=== PATIENT | male | born 1940 | race Caucasian/White ===

== ENCOUNTER 2021-04-11 18:48 | Emergency (ER) | payer MEDICARE, OTHER ==
[~2021-04-11] VITALS: Ht 170.2 cm; Wt 73.9 kg
--- NOTE | 2021-04-11 18:48 | NUR ---
PT BIB SELF C/O LOWER ABDOMINAL PAIN STARTED THIS MORNING. PT IS AAOX4, NOT IN RESPIRATORY DISTRESS, V/S STABLE, KEPT RESTED AND COMFORTABLE. WILL CONTINUE TO MONITOR.
--- NOTE | 2021-04-11 19:11 | NUR ---
REPORT GIVEN TO JESSICA CUELLAR FOR [facility].
[2021-04-11] MEDS ORDERED: ONDANSETRON HCL/PF 4 MG/2 ML VIAL ONE (19:12)
[2021-04-11 19:23] LABS: HEMATOCRIT 45 % (39-51); HEMOGLOBIN 15.5 g/dL (13.5-17.5); MEAN CORPUSCULAR HGB CONC 35 g/dl (31.0-36.0)
--- NOTE | 2021-04-11 19:25 | NUR ---
URINE COLLECTED, SENT TO LAB.
--- NOTE | 2021-04-11 19:25 | NUR ---
TOOK OVER PT CARE. PT ON MONITOR AND PULSE OX.
[2021-04-11 19:30] LABS: BASOPHILS % (AUTO) 0.1 % (0.0-2.0); EOSINOPHILS % (AUTO) 0.1 % (0.0-6.0); LYMPHOCYTES # (AUTO) 0.9 /CMM (0.8-4.8); MEAN CORPUSCULAR VOLUME 87 fL (80-96); MONOCYTES % (AUTO) 9.9 % (2.0-12.0); NEUTROPHILS # (AUTO) 8.4 /CMM (1.8-8.9); NEUTROPHILS % (AUTO) 80.9 % (43.0-81.0); PLATELET COUNT (AUTO) 178 /CMM (150-450); RED BLOOD CELL COUNT(AUTO) 5.16 MIL/uL (4.5-6.0); WHITE BLOOD COUNT (AUTO) 10.3 K/uL (4.3-11.0)
[2021-04-11 19:30] LABS: BILIRUBIN,URINE NEGATIVE (NEGATIVE); COLOR,URINE YELLOW (YELLOW); LEUKOCYTE ESTERASE ,URINE NEGATIVE (NEGATIVE); NITRITE, URINE NEGATIVE (NEGATIVE); PH,URINE 5.5 (5.0-8.0); PROTEIN,URINE NEGATIVE (NEGATIVE); UGLUCOSE NEGATIVE (NEGATIVE); UROBILINOGEN,URINE 0.2 EU/dL (0.2)
[2021-04-11] MEDS ORDERED: IV NS 0.9% 1,000 ML BAG IV ONE (19:30)
[2021-04-11] MEDS ORDERED: ONDANSETRON HCL/PF 4 MG/2 ML VIAL IVP ONE (19:30)
--- NOTE | 2021-04-11 19:40 | NUR ---
BTOUGHT TO CT
[2021-04-11 19:46] LABS: RBC,URINE 21-50 /HPF (0-2); WBC,URINE 0-2 /HPF (0-3)
[2021-04-11 19:47] LABS: BACTERIA,URINE RARE /HPF (None Seen); URINE AMORPHOUS URATE Few /HPF (None Seen)
[2021-04-11 19:50] LABS: ALBUMIN 3.8 g/dL (3.4-5.0); BILIRUBIN,DIRECT 0.2 mg/dL (0.0-0.2); BILIRUBIN,TOTAL 0.8 mg/dL (0.2-1.0); CALCIUM, SERUM 9.3 mg/dL (8.5-10.1); CREATININE 1.2 mg/dL (0.6-1.3); TOTAL PROTEIN, SERUM 7.5 g/dL (6.4-8.2)
[2021-04-11 20:02] LABS: SQUAMOUS EPITHELIAL CELL,UR 0-2 /HPF (None Seen)
--- NOTE | 2021-04-11 20:27 | NUR ---
AWAITING CT RESULTS
[2021-04-11] MEDS ORDERED: HYDR-3972 PO (21:05)
[2021-04-11] MEDS ORDERED: ONDA4TAB5 PO (21:05)
--- NOTE | 2021-04-11 21:19 | NUR ---
IV removed. Catheter intact and site benign. Pressure and 4x4 applied to site. No bleeding noted.
--- NOTE | 2021-04-11 21:19 | NUR ---
Patient discharged to home in stable condition. Written and verbal after care instructions given. Patient verbalizes understanding of instruction and RX. Pt ambulated out of ED. VSS.
[2021-04-11 21:20] VITALS: BP 141/71
== END 2021-04-11 21:21 | disposition home or self-care (01) ==
LOC: ER 18:56
DX: N20.0 Calculus of kidney (principal); E86.0 Dehydration; I10 Essential (primary) hypertension; Z98.890 Other specified postprocedural states
CPT/HCPCS: 36415; 74176; 80048; 80076; 81001; 83690; 85025; 96361; 96374; 99284; J2405; J7030

== ENCOUNTER 2021-04-22 18:42 | Emergency (ER) | payer MEDICARE, OTHER ==
[~2021-04-22] VITALS: Ht 172.7 cm; Wt 72.6 kg
[~2021-04-22 18:42] MED LIST: HYDR-3972 PO; ONDA4TAB5 PO
[2021-04-22 19:03] VITALS: BP 134/78
[2021-04-22] MEDS ORDERED: LIDOCAINE 2% JEL UROJET 10 ML MM ONE (19:15)
[2021-04-22 19:33] LABS: BASOPHILS % (AUTO) 0.3 % (0.0-2.0); EOSINOPHILS % (AUTO) 0.9 % (0.0-6.0); HEMATOCRIT 43 % (39-51); HEMOGLOBIN 14.4 g/dL (13.5-17.5); LYMPHOCYTES # (AUTO) 1.6 /CMM (0.8-4.8); LYMPHOCYTES % (AUTO) 21.5 % (20.0-44.0); MEAN CORPUSCULAR HGB CONC 34 g/dl (31.0-36.0); MEAN CORPUSCULAR VOLUME 87 fL (80-96); MONOCYTES % (AUTO) 14.1 % (2.0-12.0); NEUTROPHILS # (AUTO) 4.6 /CMM (1.8-8.9); NEUTROPHILS % (AUTO) 63.2 % (43.0-81.0); PLATELET COUNT (AUTO) 183 /CMM (150-450); RED BLOOD CELL COUNT(AUTO) 4.89 MIL/uL (4.5-6.0); WHITE BLOOD COUNT (AUTO) 7.3 K/uL (4.3-11.0)
[2021-04-22 19:43] LABS: BILIRUBIN,URINE Negative (NEGATIVE); COLOR,URINE YELLOW (YELLOW); LEUKOCYTE ESTERASE ,URINE Negative (NEGATIVE); NITRITE, URINE Negative (NEGATIVE); PH,URINE 5.5 (5.0-8.0); PROTEIN,URINE 30 mg/dl (NEGATIVE); UGLUCOSE Negative (NEGATIVE); UROBILINOGEN,URINE 0.2 EU/dL (0.2)
[2021-04-22 19:44] LABS: CALCIUM, SERUM 9.2 mg/dL (8.5-10.1); CREATININE 1.2 mg/dL (0.6-1.3); POTASSIUM 3.9 mmol/L (3.5-5.1)
[2021-04-22 20:02] LABS: BACTERIA,URINE Rare /HPF (None Seen); SQUAMOUS EPITHELIAL CELL,UR Few /HPF (None Seen); WBC,URINE NONE SEEN /HPF (0-3)
--- NOTE | 2021-04-22 21:48 | NUR ---
PATIENT CAME TO ER BED 4 C/O DRIBBLES FROM URINATION S/P PREVIOUS 6 MM STONE SINCE 04/11. PATIENT STATES THAT HE IS UNABLE TO FULLY URINATE AND IS RETAINING URINE. PATIENT IS ALERT AND ORIENTED x4. DENIES SHORTNESS OF BREATH. BREATHING EVENLY AND UNLABORED ON ROOM AIR. CONNECTED TO THE MONITOR.
--- NOTE | 2021-04-22 21:49 | NUR ---
PATIENT IS PROVIDED WITH MONACO CATHETER.
--- NOTE | 2021-04-22 21:50 | NUR ---
Patient discharged to home in stable condition. Written and verbal after care instructions given. Patient verbalizes understanding of instruction.
--- NOTE | 2021-04-22 21:50 | NUR ---
PATIENT CHANGED INTO LEG BAG.
--- NOTE | 2021-04-22 21:50 | NUR ---
PATIENT TAKEN TO CT.
--- NOTE | 2021-04-22 21:50 | NUR ---
PATIENT TAKEN BY VIA CAR.
== END 2021-04-22 21:50 | disposition home or self-care (01) ==
LOC: ER 18:46
DX: N21.0 Calculus in bladder (principal); N13.9 Obstructive and reflux uropathy, unspecified; N40.0 Benign prostatic hyperplasia without lower urinary tract symptoms; I10 Essential (primary) hypertension; Z98.890 Other specified postprocedural states; Z87.442 Personal history of urinary calculi; Z79.899 Other long term (current) drug therapy
CPT/HCPCS: 36415; 51702; 74176; 80048; 81001; 85025; 87086; 99284; J3490